=== PATIENT | female | born 1995 | race Caucasian/White ===

== ENCOUNTER 2016-06-27 05:09 | Emergency (ER) | payer OTHER ==
[2016-06-27 05:15] VITALS: BP 121/93
--- NOTE | 2016-06-27 05:40 | Emergency Department Report ---
Chief Complaint: Earache Stated Complaint: FB/LEFT EAR/PAIN Time Seen by Provider: 06/27/16 05:33 - HPI History of Present Illness: 21 y/o female complain that awhile she was sleeping she felt something crawl into her left ear.pt state that she tilt her down arrival to ER. She thinks the bug may have crawl out.the patient came to ER to be examine to make sure there was no object in ear .pt denies any pain at present .denies any drainage .denies any headache at present . - ROS Review of Systems: per HPI - Exam Vital Signs: Vital Signs 06/27/16 05:13 Temperature 97.7 F Pulse Rate 97 H Respiratory 18 Rate Blood Pressure 121/93 O2 Sat by Pulse 99 Oximetry Physical Exam: GENERAL: The patient is well-developed and well-nourished. Patient is in NAD. HENT: Normocephalic. Atraumatic. Patient has moist mucous membranes. Throat: No erythema, swelling or exudates. Ears:tympanic membranes pearly baron intact , and free of exudate and erythema EYES: Extraocular motions are intact, PERRL NECK: Supple. No meningitic signs are noted. There is no adenopathy noted. CHEST/LUNGS: Clear to auscultation bilaterally. No wheezing, rales or rhonchi noted. There is no respiratory distress noted. HEART/CARDIOVASCULAR: Regular rate and rhythm. Normal S1 S2. No murmurs, rubs , clicks, or gallops. ABDOMEN: Abdomen is soft, nontender.. Bowel sounds normoactive. There is no abdominal distentio : Deferred. SKIN: There is no rash. There is no edema. There is no diaphoresis. NEURO: The patient is A&Ox3. The patient has no focal neurologic deficits. MUSCULOSKELETAL: There is no tenderness or deformity. There is no limitation range of motion. PSYCH: Pt has appropriate mood and affect. MSE screening note: Focused history and physical exam performed. Due to findings the following was ordered: ED Medical Decision Making - Medical Decision Making left earache .no bug found in ear ED Disposition for MSE Clinical Impression: Earache on left Is pt being admited?: No Does the pt Need Aspirin: No Condition: Stable Instructions: Earache (ED) Forms: Work/School Release Form(ED), Accompanied Note Time of Disposition: 05:51
== END 2016-06-27 05:55 ==
LOC: ED 05:09
DX: H92.02 Otalgia, left ear (principal); Z53.21 Procedure and treatment not carried out due to patient leaving prior to being seen by health care provider

== ENCOUNTER 2016-09-28 10:50 | Outpatient (CLI) | payer OTHER ==
[2016-09-28 11:18] VITALS: BP 100/66
[2016-09-28 11:53] LABS: Bilirubin,Urine NEG (Negative); Blood,Urine LG (Negative); Ketones,Urine NEG (Negative); Leukocyte Esterase,Urine NEG (Negative); Nitrite,Urine NEG (Negative); Protein,Urine <15 mg/dL mg/dL (Negative); Urobilinogen,Urine < 2.0 mg/dL (<2.0); WBC,Urine < 1.0 /HPF (0.0-6.0)
[2016-09-28] MEDS ORDERED: LACTATED RINGERS 500 ML IV ONE (12:07)
[2016-09-28] MEDS ORDERED: NACL 0.9% 100 ML ONE (13:16)
--- NOTE | 2016-09-28 14:11 | Ultrasound Report ---
OB ULTRASOUND GREATER THAN 14 WEEKS INDICATION: Evaluate growth and anatomy. labor at 34 weeks. COMPARISON: None similar at this institution. TECHNIQUE: Transabdominal grayscale ultrasound with Doppler interrogation. Gestation: [place] Position: Cephalic Amniotic Fluid: WNL (7-24 cm) FELIX = 13.6 cm Placenta: Anterior Placental Grade: II Heart Rate: 132 BPM Cervical length: 3 cm (Normal > 3 cm) NEUROANATOMY VISUALIZED: Choroid Plexus Lateral Ventricle ANATOMY VISUALIZED: Stomach Kidneys Bladder Diaphragm 4 Chamber Heart Heart 3 Vessel Cord Abd. Cord Insert SPINE VISUALIZED: Longitudinal Transverse Limited spine due to position The following are not demonstrated due to maternal body habitus or lie: Cerebellum, cisterna magna BPD: 8.13 cm = 32 w 4 d HC: 30.7 cm = 34 w 1 d AC: 30 cm = 34 w 0 d FL: 6.4 cm = 33 w 0 d HC/AC Ratio: 1 Cephalic Index: 75.3 Estimated Weight: 2214 grams Clinical age = 34 w 0 d EDC: 11/09/2016 US Gest. Age = 33 w 3 d EDC: 11/13/2016 CONCLUSION: Single, viable intrauterine gestation with ultrasound estimated age of 33 weeks and 3 days and EDC of 11/13/2016, currently in cephalic lie with details, as above. Thank you for the opportunity to participate in this patient's care.
== END 2016-09-28 14:30 | disposition home or self-care (01) ==
LOC: TRG 10:50
PROVIDERS: ATTEND Obstetrics & Gynecology
DX: O47.03 False labor before 37 completed weeks of gestation, third trimester (principal); Z3A.34 34 weeks gestation of pregnancy
CPT/HCPCS: 59025; 76805; 81001